=== PATIENT | female | born 1960 | race Caucasian/White ===

== ENCOUNTER 2024-07-12 11:32 | Emergency (ER) | payer OTHER ==
[~2024-07-12] VITALS: Ht 165.1 cm; Wt 59.0 kg
[2024-07-12 11:42] VITALS: O2SAT 100
[2024-07-12 12:14] LABS: CHLORIDE 105 mEq/L (98-107); SODIUM 140 mEq/L (136-145)
[2024-07-12 12:15] LABS: CARBON DIOXIDE 29 mEq/L (21-32)
[2024-07-12] MEDS ORDERED: KETOROLAC 30MG/ML VIAL IM ONE (12:15)
[2024-07-12 12:16] LABS: CALCIUM 8.8 mg/dL (8.7-10.4)
[2024-07-12 12:20] LABS: CREATININE 0.7 mg/dL (0.6-1.0); GLUCOSE 119 mg/dL (70-105)
[2024-07-12 12:21] LABS: UREA NITROGEN BLOOD 14 mg/dL (9-23)
[2024-07-12] MEDS ORDERED: IBUP-2029 MT (13:15)
[2024-07-12] MEDS ORDERED: DOXY100T28 MT (13:15)
[2024-07-12] MEDS ORDERED: CEPH500C2 MT (13:15)
[2024-07-12] MEDS ORDERED: POTASSIUM CHLORIDE 20MEQ TABLET SR PO ONE (13:15)
[2024-07-12 13:53] VITALS: TEMP 36.66960; O2SAT 100
[2024-07-12 13:58] VITALS: BP 131/79; PULSE 77; RESP 18
[2024-07-12 13:58] LABS: BASOPHILS % 0.3 % (0.0-2.0); DIFFERENTIAL COMMENT 0; EOSINOPHILS % 0.9 % (0.0-5.0); HEMATOCRIT. 33.6 % (36.0-48.0); HEMOGLOBIN. 10.2 g/dL (12.0-16.0); LYMPHOCYTES % 17.9 % (20.0-50.0); MEAN CORPUSCULAR HEMOGLOBIN 22.6 pg (28.0-32.0); MEAN CORPUSCULAR HGB CONC 30.4 g/dL (31.0-37.0); MEAN CORPUSCULAR VOLUME 74.5 fL (81.0-99.0); MONOCYTES % 8.8 % (2.0-8.0); NEUTROPHILS % 72.1 % (40.0-76.0); PLATELET 226 x1000/uL (130-400); RED BLOOD CELL COUNT 4.52 mill/uL (4.2-5.4); RED CELL DISTRIBUTION WIDTH 17.8 % (11.6-14.6); WHITE BLOOD COUNT 10.3 x1000/uL (4.5-11.0)
[2024-07-12] MEDS: POTASSIUM CHLORIDE 20MEQ TABLET SR PO NR (13:58)
[2024-07-12] MEDS: KETOROLAC 30MG/ML VIAL IM NR (13:58)
[2024-07-12 14:45] LABS: ERYTHROCYTE SEDIMENTATION RATE 23 mm/hr (0-30)
== END 2024-07-12 14:02 | disposition home or self-care (01) ==
LOC: ER 11:32
DX: L03.113 Cellulitis of right upper limb (principal); I10 Essential (primary) hypertension; Z88.5 Allergy status to narcotic agent; Z90.49 Acquired absence of other specified parts of digestive tract
CPT/HCPCS: 99284; 80048; 83605; 85025; 85651; 36415; 73090; 96372; J1885